=== PATIENT | female | born 1950 | race Caucasian/White ===

== ENCOUNTER 2016-08-28 09:10 | Emergency (ER) | payer MEDICARE ==
[~2016-08-28] VITALS: Ht 162.6 cm; Wt 107.1 kg
[~2016-08-28 09:10] MED LIST: ASPIRIN EC81 MG PO; ASPIRIN325 MG PO; B-12 10001000 MCG SC; COUMADIN5 MG PO; DOCUSATE CAL240 MG PO; GLUCOPHAGE500 MG PO; ISOSORB MONO30 MG PO; KEFLEX500 M1 PO; LASIX 40 MG40 MG/TAB PO; LORTAB 5/3255 MG PO; LOSARTAN POTASS50 MG PO; METOPROL TAR25 MG PO; NOVOLIN 70/30 SC; PERCOCET 5/325M1 TAB PO; POTASSIUM CHLOR8 ME2 PO; ROBITUSSIN200 MG/10 PO; SIMVASTATIN40 MG PO; VITAMIN D PO
[2016-08-28 09:44] LABS: HEMATOCRIT 23.9 % (37.0-47.0); HEMOGLOBIN 7.4 g/dl (12.0-16.0); IMMATURE GRANULOCYTES 1.3 % (0.0-1.0); MEAN CELL VOLUME 95.6 fL CALC (80.0-100.0); MEAN CORPUSCULAR HGB 29.6 pG CALC (26.0-32.0); NEUT# 16.26 thou/uL (2.00-7.15); RED BLOOD COUNT 2.5 mill/uL (4.20-5.60); RED CELL DISTRI WIDTH 14.3 % (11.5-15.5)
[2016-08-28] MEDS ORDERED: ASPIRIN81 MG PO (09:45)
[2016-08-28] MEDS ORDERED: B-121000 MCG IM (09:49)
[2016-08-28 09:54] LABS: ALBUMIN 3.6 g/dL (3.2-5.0); ALKALINE PHOSPHATASE 65 u/l (38-126); AMYLASE 32 u/l (30-110); ANION GAP 21 (6-22 (CALC)); BILIRUBIN, TOTAL 0.3 mg/dL (0.0-1.4); BUN 71 mg/dL (8-23); BUN/CREATININE RATIO 79 (12-20 (CALC)); CALCIUM 8.8 mg/dL (8.4-10.2); CARBON DIOXIDE 21 mmol/l (22-30); CHLORIDE 99 mmol/l (95-108); CREATININE 0.9 mg/dL (0.5-1.0); GFR > 60 ML/MIN (>=60 (CALC)); GFR FOR AFR.AMER. > 60 ML/MIN (>=60 (CALC)); GLUCOSE 403 mg/dL (82-115); LIPASE 215 u/l (23-300); POTASSIUM 4.8 mmol/l (3.5-5.1); SGOT/AST 15 u/l (9-36); SGPT/ALT 27 u/l (11-66); SODIUM 136 mmol/l (137-146); TOTAL PROTEIN 5.9 g/dL (6.3-8.2)
[2016-08-28] MEDS ORDERED: VENTOLIN HFA IN (09:57)
[2016-08-28] MEDS ORDERED: VITAMIN D50000 UNIT PO (09:59)
[2016-08-28] MEDS ORDERED: WARFARIN5 MG PO (10:00)
[2016-08-28 10:06] LABS: MYOGLOBIN 18 ng/mL (0 - 62)
[2016-08-28 10:21] LABS: INTERNATIONAL NORMALIZED RATIO 1.9 RATIO (0.7-1.3); PROTHROMBIN TIME 22.1 SECONDS (9.0-12.5)
[2016-08-28 11:22] LABS: URINE BILIRUBIN - DIPSTICK NEGATIVE (NEGATIVE); URINE BLOOD DIPSTICK TRACE-LYSED (NEGATIVE); URINE CLARITY CLEAR; URINE COLOR YELLOW; URINE GLUCOSE - DIPSTICK 500 mg/dL (NEGATIVE); URINE KETONE NEGATIVE (NEGATIVE); URINE LEUK ESTERASE NEGATIVE (NEGATIVE); URINE NITRITE - DIPSTICK NEGATIVE (Negative); URINE PROTEIN - DIPSTICK NEGATIVE (NEG-TRACE); URINE SPECIFIC GRAVITY <=1.005; URINE UROBILINOGEN - DIPSTICK 0.2 E.U./dL (0.2)
[2016-08-28 13:12] VITALS: BP 125/84
[2016-08-28 13:16] VITALS: BP 109/52
[2016-08-28 13:25] VITALS: BP 120/53
[2016-08-28 14:07] VITALS: BP 112/54
== END 2016-08-28 14:11 | disposition short-term general hospital (02) ==
LOC: ED 09:10
PROVIDERS: Emergency Medicine
DX: R07.9 Chest pain, unspecified (principal); K92.1 Melena; R94.31 Abnormal electrocardiogram [ECG] [EKG]; R50.9 Fever, unspecified; R11.0 Nausea; R06.02 Shortness of breath
CPT/HCPCS: P9016; Q9967

== ENCOUNTER 2017-02-05 01:03 | Emergency (ER) | payer MEDICARE ==
[~2017-02-05] VITALS: Ht 162.6 cm; Wt 102.3 kg
[~2017-02-05 01:03] MED LIST changes: +ASPIRIN81 MG PO; +B-121000 MCG IM; +VENTOLIN HFA IN; +VITAMIN D50000 UNIT PO; +WARFARIN5 MG PO
[2017-02-05] MEDS ORDERED: MEGACE20 MG PO (01:50)
[2017-02-05] MEDS ORDERED: ENTRESTO 49-511 TAB PO (01:52)
[2017-02-05] MEDS ORDERED: CARVEDILOL25 MG PO (01:57)
[2017-02-05 03:05] LABS: HEMATOCRIT 40.3 % (37.0-47.0); HEMOGLOBIN 13.2 g/dl (12.0-16.0); IMMATURE GRANULOCYTES 1.2 % (0.0-1.0); MEAN CORPUSCULAR HGB 29.8 pG CALC (26.0-32.0); MEAN CORPUSCULAR HGB CONC 32.8 g/L CALC (32.0-36.0); NEUT# 9.08 thou/uL (2.00-7.15); RED BLOOD COUNT 4.43 mill/uL (4.20-5.60); RED CELL DISTRI WIDTH 14.3 % (11.5-15.5)
[2017-02-05 03:06] LABS: URINE BILIRUBIN - DIPSTICK NEGATIVE (NEGATIVE); URINE BLOOD DIPSTICK NEGATIVE (NEGATIVE); URINE COLOR YELLOW; URINE GLUCOSE - DIPSTICK NEGATIVE (NEGATIVE); URINE KETONE TRACE mg/dL (NEGATIVE); URINE NITRITE - DIPSTICK NEGATIVE (Negative); URINE PROTEIN - DIPSTICK NEGATIVE (NEG-TRACE); URINE SPECIFIC GRAVITY 1.025; URINE UROBILINOGEN - DIPSTICK 0.2 E.U./dL (0.2)
[2017-02-05 03:13] LABS: URINE CLARITY CLEAR; URINE LEUK ESTERASE SMALL (NEGATIVE)
[2017-02-05 03:30] LABS: URINE BACTERIA FEW hpf; URINE SQUAMOUS EPITHELIAL CELL FEW EPI/hpf (0-FEW)
[2017-02-05 03:31] LABS: ALBUMIN 4.5 g/dL (3.2-5.0); ALKALINE PHOSPHATASE 96 u/l (38-126); ANION GAP 20 (6-22 (CALC)); BILIRUBIN, TOTAL 0.5 mg/dL (0.0-1.4); BUN 24 mg/dL (8-23); BUN/CREATININE RATIO 28 (12-20 (CALC)); CALCIUM 10.5 mg/dL (8.4-10.2); CARBON DIOXIDE 26 mmol/l (22-30); CHLORIDE 98 mmol/l (95-108); CREATININE 0.9 mg/dL (0.5-1.0); GFR > 60 ML/MIN (>=60 (CALC)); GFR FOR AFR.AMER. > 60 ML/MIN (>=60 (CALC)); GLUCOSE 91 mg/dL (82-115); POTASSIUM 4.3 mmol/l (3.5-5.1); SGOT/AST 17 u/l (9-36); SGPT/ALT 28 u/l (11-66); SODIUM 139 mmol/l (137-146); TOTAL PROTEIN 7.6 g/dL (6.3-8.2)
[2017-02-05] MEDS ORDERED: CIPROFLOXACN500 MG PO (03:52)
[2017-02-05 04:26] VITALS: BP 154/72
== END 2017-02-05 04:25 | disposition home or self-care (01) ==
LOC: ED 01:03
PROVIDERS: Emergency Medicine
DX: M54.17 Radiculopathy, lumbosacral region (principal); M54.32 Sciatica, left side; N39.0 Urinary tract infection, site not specified; I48.91 Unspecified atrial fibrillation; E11.9 Type 2 diabetes mellitus without complications; I11.0 Hypertensive heart disease with heart failure; I50.9 Heart failure, unspecified; B96.20 Unspecified Escherichia coli [E. coli] as the cause of diseases classified elsewhere

== ENCOUNTER 2017-09-21 07:49 | Emergency (ER) | payer MEDICARE ==
[~2017-09-21] VITALS: Ht 162.6 cm; Wt 107.0 kg
[~2017-09-21 07:49] MED LIST changes: +CARVEDILOL25 MG PO; +CIPROFLOXACN500 MG PO; +ENTRESTO 49-511 TAB PO; +MEGACE20 MG PO
[2017-09-21 08:46] LABS: HEMOGLOBIN 11.9 g/dl (12.0-16.0); IMMATURE GRANULOCYTES 0.5 % (0.0-1.0); MEAN CELL VOLUME 94.8 fL CALC (80.0-100.0); MEAN CORPUSCULAR HGB 29.7 pG CALC (26.0-32.0); MEAN CORPUSCULAR HGB CONC 31.3 g/L CALC (32.0-36.0); NEUT# 5.9 thou/uL (2.00-7.15); RED BLOOD COUNT 4.01 mill/uL (4.20-5.60)
[2017-09-21 09:03] LABS: ALBUMIN 4.3 g/dL (3.2-5.0); ALKALINE PHOSPHATASE 98 u/l (38-126); ANION GAP 13 (6-22 (CALC)); BILIRUBIN, TOTAL 0.3 mg/dL (0.0-1.4); BUN 21 mg/dL (8-23); BUN/CREATININE RATIO 26 (12-20 (CALC)); CARBON DIOXIDE 29 mmol/l (22-30); CHLORIDE 103 mmol/l (95-108); CREATININE 0.8 mg/dL (0.5-1.0); GFR > 60 ML/MIN (>=60 (CALC)); GFR FOR AFR.AMER. > 60 ML/MIN (>=60 (CALC)); POTASSIUM 4.3 mmol/l (3.5-5.1); SGOT/AST 23 u/l (9-36); SGPT/ALT 28 u/l (11-66); SODIUM 141 mmol/l (137-146); TOTAL PROTEIN 7.8 g/dL (6.3-8.2)
[2017-09-21 10:00] VITALS: BP 130/70
== END 2017-09-21 09:55 | disposition designated cancer center or children's hospital (05) ==
LOC: ED 07:49
PROVIDERS: Emergency Medicine
DX: R60.9 Edema, unspecified (principal); I10 Essential (primary) hypertension; E11.9 Type 2 diabetes mellitus without complications; E78.00 Pure hypercholesterolemia, unspecified; I25.10 Atherosclerotic heart disease of native coronary artery without angina pectoris; E66.9 Obesity, unspecified; Z96.652 Presence of left artificial knee joint; M79.89 Other specified soft tissue disorders; M79.605 Pain in left leg

== ENCOUNTER 2017-10-10 10:14 | Emergency (ER) | payer MEDICARE ==
[~2017-10-10] VITALS: Ht 162.6 cm; Wt 127.0 kg
[2017-10-10 10:45] LABS: IMMATURE GRANULOCYTES 0.8 % (0.0-5.0); MEAN CELL VOLUME 96.6 fL CALC (80.0-100.0); MEAN CORPUSCULAR HGB 29.5 pG CALC (26.0-32.0); MEAN CORPUSCULAR HGB CONC 30.6 g/L CALC (32.0-36.0); NEUT# 5.7 thou/uL (2.00-7.15); RED BLOOD COUNT 2.98 mill/uL (4.20-5.60); RED CELL DISTRI WIDTH 15.9 % (11.5-15.5)
[2017-10-10 10:47] LABS: HEMATOCRIT 28.8 % (37.0-47.0); HEMOGLOBIN 8.8 g/dl (12.0-16.0)
[2017-10-10 10:57] LABS: ALBUMIN 3.6 g/dL (3.2-5.0); ALKALINE PHOSPHATASE 101 u/l (38-126); ANION GAP 13 (6-22 (CALC)); BILIRUBIN, TOTAL 0.6 mg/dL (0.0-1.4); BUN 18 mg/dL (8-23); BUN/CREATININE RATIO 22 (12-20 (CALC)); CARBON DIOXIDE 32 mmol/l (22-30); CHLORIDE 97 mmol/l (95-108); CREATININE 0.8 mg/dL (0.5-1.0); GFR > 60 ML/MIN (>=60 (CALC)); GFR FOR AFR.AMER. > 60 ML/MIN (>=60 (CALC)); MAGNESIUM 1.6 mg/dL (1.6-2.3); POTASSIUM 4.5 mmol/l (3.5-5.1); SGOT/AST 18 u/l (9-36); SGPT/ALT 27 u/l (11-66); SODIUM 138 mmol/l (137-146); TOTAL PROTEIN 6.3 g/dL (6.3-8.2)
[2017-10-10] MEDS ORDERED: COUMADIN5 MG PO (10:59)
[2017-10-10] MEDS ORDERED: PLAVIX75 MG PO (11:01)
[2017-10-10] MEDS ORDERED: PERCOCET 5/325M1 TAB PO (11:01)
[2017-10-10] MEDS ORDERED: BAYER CHEWABLE81 MG PO (11:02)
[2017-10-10] MEDS ORDERED: B121000 MCG PO (11:05)
[2017-10-10] MEDS ORDERED: CARVEDILOL25 MG PO (11:07)
[2017-10-10] MEDS ORDERED: CRANBERRY500 MG PO (11:08)
[2017-10-10] MEDS ORDERED: DULCOLAX5 MG PO (11:08)
[2017-10-10 11:09] LABS: MYOGLOBIN 33 ng/mL (0 - 62)
[2017-10-10] MEDS ORDERED: ENTRESTO 97-1031 TAB PO (11:09)
[2017-10-10] MEDS ORDERED: FUROSEMIDE40 MG PO (11:10)
[2017-10-10] MEDS ORDERED: ALLERGY NA50 MCG/ACT NAB (11:10)
[2017-10-10] MEDS ORDERED: KLOR-CON M2020 MEQ PO (11:10)
[2017-10-10 11:11] LABS: INTERNATIONAL NORMALIZED RATIO 2.1 RATIO (0.7-1.3); PROTHROMBIN TIME 23.5 SECONDS (9.0-12.5)
[2017-10-10] MEDS ORDERED: NOVOLIN 70/30 SC (11:11)
[2017-10-10] MEDS ORDERED: METFORMIN500 MG PO (11:11)
[2017-10-10] MEDS ORDERED: SIMVASTATIN20 MG PO (11:12)
[2017-10-10] MEDS ORDERED: TRAMADOL HCL50 MG PO (11:12)
[2017-10-10] MEDS ORDERED: VITAMIN D35000 UNIT PO (11:13)
[2017-10-10 11:28] LABS: TSH, 3RD GENERATION 2.93 uIU/mL (0.47 - 4.68)
[2017-10-10 11:43] LABS: URINE BILIRUBIN - DIPSTICK NEGATIVE (NEGATIVE); URINE BLOOD DIPSTICK NEGATIVE (NEGATIVE); URINE COLOR YELLOW; URINE GLUCOSE - DIPSTICK NEGATIVE (NEGATIVE); URINE KETONE NEGATIVE (NEGATIVE); URINE LEUK ESTERASE NEGATIVE (NEGATIVE); URINE NITRITE - DIPSTICK NEGATIVE (Negative); URINE PROTEIN - DIPSTICK NEGATIVE (NEG-TRACE); URINE SPECIFIC GRAVITY 1.015; URINE UROBILINOGEN - DIPSTICK 0.2 E.U./dL (0.2)
[2017-10-10 11:45] LABS: URINE CLARITY CLEAR
[2017-10-10 12:50] VITALS: BP 104/72
== END 2017-10-10 12:50 | disposition home or self-care (01) ==
LOC: ED 10:14
PROVIDERS: Family Medicine
DX: R00.1 Bradycardia, unspecified (principal); R42 Dizziness and giddiness; T44.7X5A Adverse effect of beta-adrenoreceptor antagonists, initial encounter; Y92.009 Unspecified place in unspecified non-institutional (private) residence as the place of occurrence of the external cause

== ENCOUNTER 2018-05-31 10:49 | Outpatient (REF) | payer MEDICARE ==
[~2018-05-31 10:49] MED LIST changes: +ALLERGY NA50 MCG/ACT NAB; +B121000 MCG PO; +BAYER CHEWABLE81 MG PO; +CRANBERRY500 MG PO; +DULCOLAX5 MG PO; +ENTRESTO 97-1031 TAB PO; +FUROSEMIDE40 MG PO; +KLOR-CON M2020 MEQ PO; +METFORMIN500 MG PO; +PLAVIX75 MG PO; +SIMVASTATIN20 MG PO; +TRAMADOL HCL50 MG PO; +VITAMIN D35000 UNIT PO
[2018-05-31 11:50] LABS: IMMATURE GRANULOCYTES 0.6 % (0.0-5.0); MEAN CORPUSCULAR HGB 33.9 pG CALC (26.0-32.0); MEAN CORPUSCULAR HGB CONC 31.6 g/L CALC (32.0-36.0); NEUT# 5.44 thou/uL (2.00-7.15); RED BLOOD COUNT 3.39 mill/uL (4.20-5.60); RED CELL DISTRI WIDTH 17.2 % (11.5-15.5)
[2018-05-31 11:52] LABS: HEMATOCRIT 36.4 % (37.0-47.0); HEMOGLOBIN 11.5 g/dl (12.0-16.0); MEAN CELL VOLUME 107.4 fL CALC (80.0-100.0)
[2018-05-31 12:11] LABS: ALKALINE PHOSPHATASE 105 u/l (38-126); ANION GAP 17 (6-22 (CALC)); BILIRUBIN, TOTAL 0.6 mg/dL (0.0-1.4); BUN 16 mg/dL (8-23); BUN/CREATININE RATIO 22 (12-20 (CALC)); CARBON DIOXIDE 24 mmol/l (22-30); CHLORIDE 103 mmol/l (95-108); CREATININE 0.7 mg/dL (0.5-1.0); GFR > 60 ML/MIN (>=60 (CALC)); GFR FOR AFR.AMER. > 60 ML/MIN (>=60 (CALC)); HDL CHOLESTEROL 40 mg/dL (>=40); POTASSIUM 4.2 mmol/l (3.5-5.1); SGOT/AST 23 u/l (9-36); SODIUM 139 mmol/l (137-146); TOTAL TRIGLYCERIDES 247 mg/dl (30-149); VLDL CHOLESTROL 49 mg/dl (1-41 (CALC))
[2018-05-31 12:33] LABS: PROTHROMBIN TIME 51.4 SECONDS (9.0-12.5)
[2018-05-31 12:34] LABS: ALBUMIN 4.4 g/dL (3.2-5.0); CALCULATED LDLCHOLESTEROL 84 mg/dL (62-129 (CALC)); CHOLESTEROL HDL RATIO 4.3 (<4.4 (CALC)); TOTAL CHOLESTEROL 173 mg/dl (0-199); TOTAL PROTEIN 7.6 g/dL (6.3-8.2)
[2018-05-31 12:51] LABS: TSH, 3RD GENERATION 2.58 uIU/mL (0.47 - 4.68)
== END 2018-05-31 12:04 | disposition home or self-care (01) ==
LOC: LAB 10:49 → INF 10:49
PROVIDERS: ATTEND Physician Assistant Medical
DX: I48.0 Paroxysmal atrial fibrillation (principal); E11.3313 Type 2 diabetes mellitus with moderate nonproliferative diabetic retinopathy with macular edema, bilateral; E53.8 Deficiency of other specified B group vitamins; D64.9 Anemia, unspecified; E55.9 Vitamin D deficiency, unspecified

== ENCOUNTER 2019-03-21 12:52 | Observation (INO) | payer MEDICARE ==
[~2019-03-21] VITALS: Ht 162.6 cm; Wt 108.0 kg
[2019-03-21 14:31] LABS: HEMATOCRIT 42.2 % (37.0-47.0); HEMOGLOBIN 13.2 g/dl (12.0-16.0); IMMATURE GRANULOCYTES 0.8 % (0.0-5.0); MEAN CELL VOLUME 103.9 fL CALC (80.0-100.0); MEAN CORPUSCULAR HGB 32.5 pG CALC (26.0-32.0); MEAN CORPUSCULAR HGB CONC 31.3 g/L CALC (32.0-36.0); NEUT# 8.66 thou/uL (2.00-7.15); RED BLOOD COUNT 4.06 mill/uL (4.20-5.60)
[2019-03-21 14:47] LABS: ALBUMIN 4.4 g/dL (3.2-5.0); ALKALINE PHOSPHATASE 111 u/l (38-126); ANION GAP 15 (6-22 (CALC)); BILIRUBIN, TOTAL 0.5 mg/dL (0.0-1.4); BUN 23 mg/dL (8-23); BUN/CREATININE RATIO 32 (12-20 (CALC)); CARBON DIOXIDE 24 mmol/l (22-30); CHLORIDE 102 mmol/l (95-108); CREATININE 0.7 mg/dL (0.5-1.0); GFR > 60 ML/MIN (>=60 (CALC)); GFR FOR AFR.AMER. > 60 ML/MIN (>=60 (CALC)); LIPASE 135 u/l (23-300); POTASSIUM 3.9 mmol/l (3.5-5.1); SGOT/AST 25 u/l (9-36); SODIUM 137 mmol/l (137-146); TOTAL PROTEIN 7.8 g/dL (6.3-8.2)
[2019-03-21] MEDS ORDERED: ATORVASTATIN CA40 MG PO (17:23)
[2019-03-21] MEDS ORDERED: DIOVAN80 MG PO (17:26)
[2019-03-21] MEDS ORDERED: METOPROL TAR25 MG PO (17:28)
[2019-03-21] MEDS ORDERED: XARELTO10 MG PO (17:29)
[2019-03-21] MEDS ORDERED: ANASTROZOLE1 MG PO (17:30)
[2019-03-21] MEDS ORDERED: COMPAZINE10 MG PO (17:36)
[2019-03-21] MEDS ORDERED: MULTI VIT PO (17:37)
[2019-03-21 18:22] LABS: URINE BILIRUBIN - DIPSTICK NEGATIVE (NEGATIVE); URINE COLOR YELLOW; URINE GLUCOSE - DIPSTICK NEGATIVE (NEGATIVE); URINE KETONE NEGATIVE (NEGATIVE); URINE LEUK ESTERASE NEGATIVE (NEGATIVE); URINE NITRITE - DIPSTICK NEGATIVE (Negative); URINE PROTEIN - DIPSTICK 100 mg/dL (NEG-TRACE); URINE SPECIFIC GRAVITY >=1.030; URINE UROBILINOGEN - DIPSTICK 0.2 E.U./dL (0.2)
[2019-03-21 18:34] LABS: URINE BLOOD DIPSTICK NEGATIVE (NEGATIVE)
[2019-03-21 18:35] LABS: URINE EPITHELIAL CELLS RARE EPI/hpf (0-FEW); URINE RBC 0-2 RBC/hpf (0-5); URINE WBC 0-2 WBC/hpf (0-5)
[2019-03-21 20:10] VITALS: BP 157/59
[2019-03-21 23:45] VITALS: BP 153/68
[2019-03-22 04:53] VITALS: BP 147/71
[2019-03-22 08:27] VITALS: BP 159/74
[2019-03-22 11:15] VITALS: BP 156/78
[2019-03-22 14:58] VITALS: BP 162/67
[2019-03-22 19:10] VITALS: BP 139/58
[2019-03-23] VITALS (8 sets, daily range): BP systolic 142–186; BP diastolic 65–88
[2019-03-23 05:47] LABS: ANION GAP 13 (6-22 (CALC)); BUN 19 mg/dL (8-23); BUN/CREATININE RATIO 39 (12-20 (CALC)); CARBON DIOXIDE 24 mmol/l (22-30); CHLORIDE 104 mmol/l (95-108); CREATININE 0.5 mg/dL (0.5-1.0); GFR > 60 ML/MIN (>=60 (CALC)); GFR FOR AFR.AMER. > 60 ML/MIN (>=60 (CALC)); MAGNESIUM 1.6 mg/dL (1.6-2.3); POTASSIUM 3.9 mmol/l (3.5-5.1); SODIUM 138 mmol/l (137-146)
[2019-03-24 00:20] VITALS: BP 133/74
[2019-03-24 05:00] VITALS: BP 158/85
[2019-03-24 05:39] LABS: HEMATOCRIT 41.5 % (37.0-47.0); HEMOGLOBIN 13.1 g/dl (12.0-16.0); MEAN CELL VOLUME 103.8 fL CALC (80.0-100.0); MEAN CORPUSCULAR HGB 32.8 pG CALC (26.0-32.0); MEAN CORPUSCULAR HGB CONC 31.6 g/L CALC (32.0-36.0)
[2019-03-24 05:55] LABS: ALBUMIN 3.8 g/dL (3.2-5.0); ALKALINE PHOSPHATASE 97 u/l (38-126); ANION GAP 14 (6-22 (CALC)); BILIRUBIN, TOTAL 0.7 mg/dL (0.0-1.4); BUN 14 mg/dL (8-23); BUN/CREATININE RATIO 31 (12-20 (CALC)); CARBON DIOXIDE 22 mmol/l (22-30); CHLORIDE 108 mmol/l (95-108); CREATININE 0.5 mg/dL (0.5-1.0); GFR > 60 ML/MIN (>=60 (CALC)); GFR FOR AFR.AMER. > 60 ML/MIN (>=60 (CALC)); SGOT/AST 24 u/l (9-36); SODIUM 139 mmol/l (137-146); TOTAL PROTEIN 6.7 g/dL (6.3-8.2)
[2019-03-24 07:50] VITALS: BP 160/116
[2019-03-24 11:49] VITALS: BP 142/73
[2019-03-24] MEDS ORDERED: LEVAQUIN750 MG PO (13:32)
== END 2019-03-24 14:01 | disposition home or self-care (01) ==
LOC: ED 12:52 → ED-I 15:02 → ED 16:28 → MS2 16:29
PROVIDERS: Family Medicine; Nurse Practitioner Family; ADMIT Internal Medicine; ATTEND Internal Medicine
DX: J18.9 Pneumonia, unspecified organism (principal); C55 Malignant neoplasm of uterus, part unspecified; E11.9 Type 2 diabetes mellitus without complications; I50.9 Heart failure, unspecified; I25.10 Atherosclerotic heart disease of native coronary artery without angina pectoris; I11.0 Hypertensive heart disease with heart failure; I48.91 Unspecified atrial fibrillation; E78.5 Hyperlipidemia, unspecified; E83.42 Hypomagnesemia; G47.30 Sleep apnea, unspecified; E87.2 Acidosis; R00.1 Bradycardia, unspecified; Z79.01 Long term (current) use of anticoagulants; Z91.19 Patient's noncompliance with other medical treatment and regimen; Z79.899 Other long term (current) drug therapy; Z79.4 Long term (current) use of insulin
CPT/HCPCS: G0378; J3370; J3475

== ENCOUNTER 2020-09-29 10:27 | Emergency (ER) | payer MEDICARE ==
[~2020-09-29] VITALS: Ht 162.6 cm; Wt 105.4 kg
[~2020-09-29 10:27] MED LIST changes: +ANASTROZOLE1 MG PO; +ATORVASTATIN CA40 MG PO; +COMPAZINE10 MG PO; +DIOVAN80 MG PO; +LEVAQUIN750 MG PO; +MULTI VIT PO; +XARELTO10 MG PO
[2020-09-29 11:08] LABS: IMMATURE GRANULOCYTES 1.6 % (0.0-5.0); MEAN CELL VOLUME 100.6 fL CALC (80.0-100.0); MEAN CORPUSCULAR HGB 31.8 pG CALC (26.0-32.0); MEAN CORPUSCULAR HGB CONC 31.6 g/dL CAL (32.0-36.0); NEUT# 12.32 thou/uL (2.00-7.15); RED BLOOD COUNT 1.54 mill/uL (4.20-5.60); RED CELL DISTRI WIDTH 16.4 % (11.5-15.5)
[2020-09-29 11:13] LABS: HEMATOCRIT 15.5 % (37.0-47.0); HEMOGLOBIN 4.9 g/dl (12.0-16.0)
[2020-09-29 11:21] LABS: ALBUMIN 3.5 g/dL (3.2-5.0); POTASSIUM 4.6 mmol/l (3.5-5.1); TOTAL PROTEIN 6.2 g/dL (6.3-8.2)
[2020-09-29 11:34] LABS: BILIRUBIN, TOTAL 0.2 mg/dL (0.0-1.4); CREATININE 1.6 mg/dL (0.5-1.0)
[2020-09-29 11:40] VITALS: BP 101/70
[2020-09-29 11:50] VITALS: BP 100/68
[2020-09-29 12:20] LABS: URINE BILIRUBIN - DIPSTICK NEGATIVE (NEGATIVE); URINE BLOOD DIPSTICK SMALL (NEGATIVE); URINE COLOR YELLOW; URINE GLUCOSE - DIPSTICK NEGATIVE (NEGATIVE); URINE KETONE NEGATIVE (NEGATIVE); URINE PROTEIN - DIPSTICK NEGATIVE (NEG-TRACE); URINE UROBILINOGEN - DIPSTICK 0.2 E.U./dL (0.2)
[2020-09-29 12:21] LABS: URINE LEUK ESTERASE SMALL (NEGATIVE); URINE NITRITE - DIPSTICK NEGATIVE (Negative)
[2020-09-29 12:23] VITALS: BP 71/40
[2020-09-29 12:27] VITALS: BP 91/51
[2020-09-29 12:30] LABS: URINE BACTERIA FEW hpf; URINE HYALINE CAST FEW lpf (NONE-RARE); URINE SQUAMOUS EPITHELIAL CELL FEW EPI/hpf (0-FEW); URINE TRANSITIONAL EPI. CELLS FEW hpf
[2020-09-29 13:05] VITALS: BP 90/60
--- NOTE | 2020-10-01 10:02 | NUR ---
PRELIMIARY BLOOD CULTURE SHOWS GRAM POSITIVE COCCI. FINAL URINE CULTURE SHOWS E.COLI. CALLED AND FAXED DOWN THE RESULTS TO [facility] AT [phone] ON 10/01/20.
--- NOTE | 2020-10-03 07:21 | NUR ---
FINAL BLOOD CX RESULTS SHOWS MIXED GRAM POSITIVE KYUNG. CALLED TO BRIAN AT [facility] [address], FAXED TO [phone]
== END 2020-09-29 13:05 | disposition short-term general hospital (02) ==
LOC: ED 10:27
PROVIDERS: Family Medicine
PROC: 0T9B70Z Drainage of Bladder with Drainage Device, Via Natural or Artificial Opening (ICD-10-PCS; principal; 2020-09-29)
PROC: 30233N1 Transfusion of Nonautologous Red Blood Cells into Peripheral Vein, Percutaneous Approach (ICD-10-PCS; 2020-09-29)
PROC: 30233N1 Transfusion of Nonautologous Red Blood Cells into Peripheral Vein, Percutaneous Approach (ICD-10-PCS; 2020-09-29)
PROC: 30233N1 Transfusion of Nonautologous Red Blood Cells into Peripheral Vein, Percutaneous Approach (ICD-10-PCS; 2020-09-29)
PROC: 06HY33Z Insertion of Infusion Device into Lower Vein, Percutaneous Approach (ICD-10-PCS; 2020-09-29)
DX: K92.2 Gastrointestinal hemorrhage, unspecified (principal); D62 Acute posthemorrhagic anemia; I95.9 Hypotension, unspecified; N28.9 Disorder of kidney and ureter, unspecified; E11.9 Type 2 diabetes mellitus without complications; I11.0 Hypertensive heart disease with heart failure; I50.9 Heart failure, unspecified; I48.91 Unspecified atrial fibrillation; E78.00 Pure hypercholesterolemia, unspecified; Z79.01 Long term (current) use of anticoagulants; Z79.84 Long term (current) use of oral hypoglycemic drugs; Z95.828 Presence of other vascular implants and grafts; Z85.038 Personal history of other malignant neoplasm of large intestine
CPT/HCPCS: J2354; P9016; S0164

== ENCOUNTER 2022-12-19 01:38 | Emergency (ER) | payer MEDICARE ==
[~2022-12-19] VITALS: Ht 162.6 cm; Wt 97.9 kg
[2022-12-19 01:46] VITALS: BP 168/87
[2022-12-19] MEDS ORDERED: CRESTOR5 MG PO (01:59)
[2022-12-19 02:01] VITALS: BP 162/74
[2022-12-19 02:46] VITALS: BP 144/86
[2022-12-19 04:35] VITALS: BP 144/86
[2022-12-19] MEDS ORDERED: KEFLEX500 MG PO (04:57)
[2022-12-19 04:58] LABS: URINE BILIRUBIN - DIPSTICK Negative (NEGATIVE); URINE GLUCOSE - DIPSTICK Negative (NEGATIVE); URINE KETONE Negative (NEGATIVE); URINE NITRITE - DIPSTICK Negative (Negative); URINE PROTEIN - DIPSTICK Negative (NEG-TRACE); URINE SPECIFIC GRAVITY 1.015; URINE UROBILINOGEN - DIPSTICK 0.2 E.U./dL (0.2)
[2022-12-19 04:59] LABS: URINE BLOOD DIPSTICK Negative (NEGATIVE); URINE COLOR Yellow; URINE LEUK ESTERASE Small (NEGATIVE)
[2022-12-19 05:00] LABS: URINE BACTERIA MODERATE hpf; URINE EPITHELIAL CELLS FEW EPI/hpf (0-FEW); URINE WBC 20-50 WBC/hpf (0-5)
== END 2022-12-19 04:35 | disposition home or self-care (01) ==
LOC: ED 01:38
PROVIDERS: Emergency Medicine
DX: N39.0 Urinary tract infection, site not specified (principal); B96.20 Unspecified Escherichia coli [E. coli] as the cause of diseases classified elsewhere; I11.0 Hypertensive heart disease with heart failure; I50.9 Heart failure, unspecified; E11.9 Type 2 diabetes mellitus without complications; I25.10 Atherosclerotic heart disease of native coronary artery without angina pectoris; I48.91 Unspecified atrial fibrillation; E78.00 Pure hypercholesterolemia, unspecified; Z85.038 Personal history of other malignant neoplasm of large intestine; Z85.42 Personal history of malignant neoplasm of other parts of uterus; Z79.84 Long term (current) use of oral hypoglycemic drugs

== ENCOUNTER 2024-02-13 11:33 | Emergency (ER) | payer MEDICARE ==
[2024-02-13] VITALS (10 sets, daily range): BP systolic 122–157; BP diastolic 64–101
[~2024-02-13] VITALS: Ht 162.6 cm; Wt 100.0 kg
[~2024-02-13 11:33] MED LIST changes: +ALLOPURINOL300 MG PO; +BACTRIM DS1 TAB PO; +CRESTOR5 MG PO; +ENTRESTO 24-261 TAB; +FUROSEMIDE PO; +GABAPENTIN PO; +KEFLEX500 MG PO; +LISINOPRIL5 MG PO; +METOLAZONE2.5 MG PO; +ROSUVASTATIN CA40 MG PO; +SPIRONOLACTONE50 MG PO
[2024-02-13] MEDS ORDERED: HYDROcodone 5 MG/Acetaminophen 325 MG/COMBO PO ONE (12:40)
[2024-02-13] MEDS ORDERED: METHOCARBAMOL 500 MG/TAB PO ONE (12:45)
[2024-02-13] MEDS ORDERED: LORTAB 5/3255 MG PO (14:38)
[2024-02-13] MEDS ORDERED: METHOCARBAMOL500 MG PO (14:38)
[2024-02-13] MEDS ORDERED: KETOROLAC TROMETHAMINE 15 MG/ML SDV IM ONE (14:55)
== END 2024-02-13 15:35 | disposition home or self-care (01) ==
LOC: ED 11:33
DX: M54.6 Pain in thoracic spine (principal); R07.89 Other chest pain; I11.0 Hypertensive heart disease with heart failure; I50.9 Heart failure, unspecified; E11.9 Type 2 diabetes mellitus without complications; I25.10 Atherosclerotic heart disease of native coronary artery without angina pectoris; I48.91 Unspecified atrial fibrillation; Z85.038 Personal history of other malignant neoplasm of large intestine; Z85.42 Personal history of malignant neoplasm of other parts of uterus; Z79.84 Long term (current) use of oral hypoglycemic drugs; Z79.4 Long term (current) use of insulin

== ENCOUNTER 2024-04-30 09:03 | Emergency (ER) | payer MEDICARE ==
[~2024-04-30] VITALS: Ht 162.6 cm; Wt 90.7 kg
[~2024-04-30 09:03] MED LIST changes: +METHOCARBAMOL500 MG PO
[2024-04-30 09:46] VITALS: BP 129/69
[2024-04-30 10:16] VITALS: BP 145/64
[2024-04-30] MEDS ORDERED: ONDANSETRON 4 MG/TAB ODT PO ONE (10:20)
[2024-04-30 10:31] VITALS: BP 131/72
[2024-04-30 10:39] VITALS: BP 131/72
== END 2024-04-30 10:52 | disposition home or self-care (01) ==
LOC: ED 09:03
DX: M54.50 Low back pain, unspecified (principal); M25.561 Pain in right knee; I11.0 Hypertensive heart disease with heart failure; I50.9 Heart failure, unspecified; E11.9 Type 2 diabetes mellitus without complications; I48.91 Unspecified atrial fibrillation; Z79.84 Long term (current) use of oral hypoglycemic drugs

== ENCOUNTER 2024-05-17 08:54 | Inpatient (IN) | payer MEDICARE ==
[~2024-05-17] VITALS: Ht 162.6 cm; Wt 95.7 kg
[2024-05-17] VITALS (12 sets, daily range): BP systolic 74–154; BP diastolic 45–81
[~2024-05-17 08:54] MED LIST changes: +ALLOPURINOL200 MG PO; -ALLOPURINOL300 MG PO; -FUROSEMIDE PO; -GABAPENTIN PO; +GABAPENTIN300 M2 PO; +LASIX 80 MG TAB80 MG PO; -TRAMADOL HCL50 MG PO; +TRAMADOL HYDROC50 M1 PO
[2024-05-17] MEDS ORDERED: KETOROLAC TROMETHAMINE 15 MG/ML SDV IV ONE (09:35)
[2024-05-17 09:41] LABS: BASO% 0.6 % (0-3); EOS% 0.9 % (0-8); HEMATOCRIT 34.8 % (37.0-47.0); IMMATURE GRANULOCYTES 0.8 % (0.0-5.0); LYMPH% 9.2 % (15-41); MEAN CORPUSCULAR HGB 34.2 pG CALC (26.0-32.0); MONO% 8.2 % (2-13); NEUT# 8.2 thou/uL (2.00-7.15); NEUT% 80.3 % (42-76); RED BLOOD COUNT 3.16 mill/uL (4.20-5.60); RED CELL DISTRI WIDTH 15.7 % (11.5-15.5)
[2024-05-17 09:43] LABS: HEMOGLOBIN 10.8 g/dl (12.0-16.0); MEAN CELL VOLUME 110.1 fL CALC (80.0-100.0)
[2024-05-17 09:54] LABS: ALBUMIN 4.1 g/dL (3.2-5.0); CREATININE 1.2 mg/dL (0.5-1.0); POTASSIUM 4.6 mmol/l (3.5-5.1); TOTAL PROTEIN 7.3 g/dL (6.3-8.2)
[2024-05-17 09:59] LABS: BILIRUBIN, TOTAL 0.4 mg/dL (0.02-1.3)
[2024-05-17] MEDS ORDERED: MIDAZOLAM HCL 2 MG/2 ML VIAL IV ONE (10:10)
[2024-05-17 10:22] LABS: URINE BILIRUBIN - DIPSTICK Negative (NEGATIVE); URINE BLOOD DIPSTICK Negative (NEGATIVE); URINE GLUCOSE - DIPSTICK Negative (NEGATIVE); URINE KETONE Negative (NEGATIVE); URINE LEUK ESTERASE Negative (NEGATIVE); URINE NITRITE - DIPSTICK Negative (Negative); URINE PROTEIN - DIPSTICK Trace mg/dL (NEG-TRACE); URINE UROBILINOGEN - DIPSTICK 0.2 E.U./dL (0.2)
[2024-05-17 10:23] LABS: URINE COLOR Yellow
[2024-05-17] MEDS ORDERED: ACETAMINOPHEN 325 MG/TAB PO PRN (13:30)
[2024-05-17] MEDS ORDERED: traMADol HCL 50 MG/TAB PO PRN (13:30)
[2024-05-17] MEDS ORDERED: MAGNESIUM HYDROXIDE 30 ML UDC PO PRN (13:30)
[2024-05-17] MEDS ORDERED: MORPHINE SULFATE 4 MG/ML VIAL IV PRN (13:30)
[2024-05-17] MEDS ORDERED: SODIUM CHLORIDE 0.9% 1,000 ML IV PRN (13:30)
[2024-05-17] MEDS ORDERED: OZEMPIC2 MG SC (14:30)
[2024-05-17] MEDS ORDERED: NOVOLOG100 UNIT SC (14:31)
[2024-05-17] MEDS ORDERED: TRESIBA FL100 UNIT/M SC (14:31)
[2024-05-17] MEDS ORDERED: MUPIROCIN2 % EX (14:32)
[2024-05-17] MEDS ORDERED: DEXTROSE 50% 50 ML/SYR IV PRN (18:35)
[2024-05-17] MEDS ORDERED: DEXTROSE 250 ML IV PRN ×2 (18:35→21:45)
[2024-05-17] MEDS ORDERED: ENOXAPARIN SODIUM 40 MG/0.4 ML SYR SC SCH (21:00)
[2024-05-18] VITALS (7 sets, daily range): BP systolic 102–127; BP diastolic 45–60
[2024-05-18 05:41] LABS: HEMATOCRIT 33.9 % (37.0-47.0); HEMOGLOBIN 9.9 g/dl (12.0-16.0); MEAN CORPUSCULAR HGB 34.6 pG CALC (26.0-32.0); MEAN CORPUSCULAR HGB CONC 29.2 g/dL CAL (32.0-36.0); RED BLOOD COUNT 2.86 mill/uL (4.20-5.60); RED CELL DISTRI WIDTH 15.9 % (11.5-15.5)
[2024-05-18 05:42] LABS: MEAN CELL VOLUME 118.5 fL CALC (80.0-100.0)
[2024-05-18 05:55] LABS: BILIRUBIN, TOTAL 0.4 mg/dL (0.02-1.3); CREATININE 0.8 mg/dL (0.5-1.0); MAGNESIUM 1.9 mg/dL (1.6-2.3)
[2024-05-18 05:57] LABS: TOTAL PROTEIN 5.5 g/dL (6.3-8.2)
[2024-05-18] MEDS ORDERED: INSULIN LISPRO 100 UNITS/ML ML SC SCH (07:00)
[2024-05-18] MEDS ORDERED: HYDROcodone 5 MG/Acetaminophen 325 MG/COMBO PO PRN (08:55)
[2024-05-18] MEDS ORDERED: SPIRONOLACTONE 25 MG/TAB PO SCH (09:00)
[2024-05-18] MEDS ORDERED: ALLOPURINOL 100 MG/TAB PO SCH (09:00)
[2024-05-18] MEDS ORDERED: INSULIN GLARGINE 100 UNITS/ML SC SCH (09:00)
[2024-05-18] MEDS ORDERED: LISINOPRIL 5 MG/TAB PO SCH (09:00)
[2024-05-18] MEDS ORDERED: GABAPENTIN 300 MG/CAP PO SCH ×2 (09:00→21:00)
[2024-05-18] MEDS ORDERED: DOCUSATE SODIUM 100 MG/CAP PO SCH (09:00)
[2024-05-18] MEDS ORDERED: FUROSEMIDE 40 MG/TAB PO SCH (09:00)
[2024-05-19] VITALS (12 sets, daily range): BP systolic 97–150; BP diastolic 33–127
[2024-05-19] MEDS ORDERED: HYDROcodone 7.5 MG/Acetaminophen 325 MG/COMBO PO PRN (07:50)
[2024-05-19] MEDS ORDERED: INSULIN GLARGINE 100 UNITS/ML SC SCH (09:00)
[2024-05-19] MEDS ORDERED: FLUTICASONE PROPIONATE (Nasal) 50MCG/SPRAY INH SCH (09:00)
[2024-05-20 00:05] VITALS: BP 111/53
[2024-05-20 04:55] VITALS: BP 98/56
[2024-05-20 06:54] VITALS: BP 95/56
[2024-05-20 07:59] LABS: BASO% 0.7 % (0-3); EOS% 2.2 % (0-8); HEMATOCRIT 30.9 % (37.0-47.0); HEMOGLOBIN 9.4 g/dl (12.0-16.0); IMMATURE GRANULOCYTES 0.6 % (0.0-5.0); MEAN CORPUSCULAR HGB 33.6 pG CALC (26.0-32.0); MEAN CORPUSCULAR HGB CONC 30.4 g/dL CAL (32.0-36.0); NEUT# 6.16 thou/uL (2.00-7.15); NEUT% 72.5 % (42-76); RED BLOOD COUNT 2.8 mill/uL (4.20-5.60); RED CELL DISTRI WIDTH 15.2 % (11.5-15.5)
[2024-05-20 08:01] LABS: MEAN CELL VOLUME 110.4 fL CALC (80.0-100.0)
[2024-05-20 08:13] LABS: ALBUMIN 3.1 g/dL (3.2-5.0); BILIRUBIN, TOTAL 0.5 mg/dL (0.02-1.3); MAGNESIUM 1.6 mg/dL (1.6-2.3); POTASSIUM 4.6 mmol/l (3.5-5.1); TOTAL PROTEIN 5.6 g/dL (6.3-8.2)
[2024-05-20] MEDS ORDERED: predniSONE 20 MG/TAB PO SCH (09:30)
[2024-05-20 10:36] VITALS: BP 110/40
[2024-05-20 14:20] VITALS: BP 116/65
[2024-05-20 18:30] VITALS: BP 116/59
[2024-05-21 00:27] VITALS: BP 114/64
[2024-05-21 04:23] VITALS: BP 119/67
[2024-05-21 05:59] LABS: ALBUMIN 3.2 g/dL (3.2-5.0); BILIRUBIN, TOTAL 0.4 mg/dL (0.02-1.3); CREATININE 0.9 mg/dL (0.5-1.0); MAGNESIUM 1.6 mg/dL (1.6-2.3); TOTAL PROTEIN 5.7 g/dL (6.3-8.2)
[2024-05-21 06:01] LABS: BASO% 0.4 % (0-3); HEMATOCRIT 32.6 % (37.0-47.0); IMMATURE GRANULOCYTES 0.6 % (0.0-5.0); LYMPH% 6.5 % (15-41); MEAN CELL VOLUME 111.3 fL CALC (80.0-100.0); MEAN CORPUSCULAR HGB 34.1 pG CALC (26.0-32.0); MEAN CORPUSCULAR HGB CONC 30.7 g/dL CAL (32.0-36.0); MONO% 5.6 % (2-13); NEUT# 6.82 thou/uL (2.00-7.15); NEUT% 86.9 % (42-76); RED BLOOD COUNT 2.93 mill/uL (4.20-5.60); RED CELL DISTRI WIDTH 14.6 % (11.5-15.5)
[2024-05-21 06:11] LABS: POTASSIUM 5.4 mmol/l (3.5-5.1)
[2024-05-21 06:26] VITALS: BP 118/42
[2024-05-21] MEDS ORDERED: LORTAB 7.57.5 MG PO (09:39)
[2024-05-21 09:42] VITALS: BP 118/42
[2024-05-21] MEDS ORDERED: LANTUS100 UNIT SC (09:42)
[2024-05-21] MEDS ORDERED: PREDNISONE20 MG PO (09:42)
== END 2024-05-21 11:28 | DRG 552 ==
LOC: ED 08:54 → ED-I 11:20 → ED 11:49 → ICU 11:50 → MS2 05-18 10:30 → ICU 05-18 10:30 → MS2 05-19 17:54
PROVIDERS: Family Medicine; Nurse Practitioner Family; ADMIT Internal Medicine; ATTEND Internal Medicine
DX: M54.59 Other low back pain (principal); E11.9 Type 2 diabetes mellitus without complications; I11.0 Hypertensive heart disease with heart failure; I50.9 Heart failure, unspecified; I48.91 Unspecified atrial fibrillation; E78.00 Pure hypercholesterolemia, unspecified; I25.10 Atherosclerotic heart disease of native coronary artery without angina pectoris; D64.9 Anemia, unspecified; E66.01 Morbid (severe) obesity due to excess calories; Z85.038 Personal history of other malignant neoplasm of large intestine; Z85.51 Personal history of malignant neoplasm of bladder; Z85.43 Personal history of malignant neoplasm of ovary; Z90.49 Acquired absence of other specified parts of digestive tract; Z79.4 Long term (current) use of insulin; Z79.85 Long-term (current) use of injectable non-insulin antidiabetic drugs; Z91.81 History of falling
CPT/HCPCS: J1650; J1815